=== PATIENT | male | born 1960 | race Caucasian/White ===

== ENCOUNTER 2016-09-12 15:37 | Emergency (ER) | payer BC, OTHER ==
[2016-09-12 15:47] VITALS: BP 145/85
[2016-09-12] MEDS ORDERED: Tetan/Diph/Pertus SYR(Tdap)* 0.5 ML SYR(BOOSTRIX) use SYR IM ONE (15:48)
[2016-09-12] MEDS ORDERED: Lidocaine 1% MPF* 2 ML VIAL INJ ONE (16:11)
--- NOTE | 2016-09-12 16:15 | UC ---
Laceration HPI - HPI Summary HPI Summary: Cut side of L hand on sheet metal at home earlier today. Tried cleaning and bandaging it on his own, but it keeps opening and bleeding again. No weakness or sensory problems. Denies hx of bleeding/immune d/o. - History Of Current Complaint Chief Complaint: UCLaceration Stated Complaint: HAND LAC Time Seen by Provider: 09/12/16 15:49 Hx Obtained From: Patient Laceration Location: Hand Mechanism Of Injury: Sharp Trauma Onset/Duration: Sudden Onset Severity: Mild - Allergies/Home Medications Allergies/Adverse Reactions: Allergies Allergy/AdvReac Type Severity Reaction Status Date / Time No Known Allergies Allergy Verified 09/12/16 15:47 Home Medications: Home Medications Meloxicam [Mobic] 15 mg PO DAILY 09/12/16 [History Confirmed 09/12/16] PMH/Surg Hx/FS Hx/Imm Hx Previously Healthy: Yes - Surgical History Surgical History: None - Family History Known Family History: Negative: Blood Disorder - Social History Occupation: Retired Lives: With Family Alcohol Use: Occasionally Substance Use Type: None Smoking Status (MU): Never Smoked Tobacco - Immunization History Most Recent Tetanus Shot: needs Review of Systems Constitutional: Negative Skin: Other - lac to L hand Eyes: Negative ENT: Negative Respiratory: Negative Cardiovascular: Negative Gastrointestinal: Negative Genitourinary: Negative Motor: Negative Neurovascular: Negative Musculoskeletal: Negative Neurological: Negative Psychological: Negative All Other Systems Reviewed And Are Negative: Yes Physical Exam Triage Information Reviewed: Yes Appearance: Well-Appearing, No Pain Distress, Well-Nourished Vital Signs: Initial Vital Signs Temp 97.7 F 09/12/16 15:43 Pulse 84 09/12/16 15:43 Resp 18 09/12/16 15:43 BP 145/85 09/12/16 15:43 Pulse Ox 100 09/12/16 15:43 Vital Signs Reviewed: Yes Eye Exam: Normal, Other - PERRL Eyes: Positive: Conjunctiva Clear ENT Exam: Normal ENT: Positive: Normal ENT inspection, Hearing grossly normal, Pharynx normal, TMs normal Dental Exam: Normal Neck exam: Normal Neck: Positive: Supple, Nontender, No Lymphadenopathy Respiratory Exam: Normal Respiratory: Positive: Chest non-tender, Lungs clear, Normal breath sounds, No respiratory distress, No accessory muscle use Cardiovascular Exam: Normal Cardiovascular: Positive: RRR, No Murmur Musculoskeletal Exam: Normal Musculoskeletal: Positive: Strength Intact, ROM Intact Neurological Exam: Normal Psychological Exam: Normal Skin Exam: Other - 3cm lac to L hand Laceration Repair - Laceration Repair 1 Description: Linear Laceration Size After Repair: Length (cm) - 3, Width (mm) - 0, Depth (mm) - 0 Modified For Repair: No Type Injection: Local Anesthesia Used: 1.0% Lido - 4mL Cleansing Completed Via Routine Prep: Yes Irrigation With Pressure Irrigation Device: Yes Closure Material: Sutures Closure Method: Single Layer Suture Of: Skin Suture Type: Nylon - #5 5-0 Laceration Course/Dx - Differential Dx - Laceration/Wound Provider Diagnoses: L hand laceration repair Discharge - Discharge Plan Condition: Stable Disposition: HOME Patient Education Materials: Laceration (ED) Additional Instructions: Come back in 8-9 days for suture removal. Come back sooner if you suspect infection or other problems. Wash the wound (in the shower is fine) and change your bandage at least once per day.
== END 2016-09-12 16:40 | disposition home or self-care (01) ==
LOC: UCEAST 15:37
DX: S61.412A Laceration without foreign body of left hand, initial encounter (principal); W26.8XXA Contact with other sharp object(s), not elsewhere classified, initial encounter; Y93.9 Activity, unspecified; Y92.009 Unspecified place in unspecified non-institutional (private) residence as the place of occurrence of the external cause; Y99.9 Unspecified external cause status; Z23 Encounter for immunization
CPT/HCPCS: 12001; 12002; 12041; 90471; 90715; 99201; G0463